=== PATIENT | female | born 1955 | race Caucasian/White ===

== ENCOUNTER 2017-08-19 13:46 | Inpatient (IN) | payer OTHER ==
[~2017-08-19] VITALS: Ht 157.5 cm; Wt 104.4 kg
[~2017-08-19 13:46] MED LIST: ALBU8.5H8 INH; BUPR150T8 PO; CRESTOR5 MG PO; DILT240C2 PO; DILT30TA26 PO; DULO30CA2 PO; FENO145T32 PO; FLUT1DIS IH; LEVO175T5 PO; MELO15TA23 PO; METF10003 PO; METF100P4 MC; OLME20TA17 PO; OMEG1CAP6 PO
[2017-08-19] MEDS ORDERED: IV NORMAL SALINE 1,000ML 1,000 ML IV ONE ×2 (14:15→14:45)
--- NOTE | 2017-08-19 14:28 | EKG ---
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
[2017-08-19 14:43] LABS: BASO % 0 % (0-3); EOS # 0.1 x10^3/uL (0.0-0.7); EOS % 1 % (0-3); HEMATOCRIT 47.2 % (36.0-47.0); LYMPH # 0.5 x10^3/uL (1.0-4.8); LYMPH % 4 % (24-48); MEAN CORPUSCULAR HEMOGLOBIN 31 pg (25-35); MEAN CORPUSCULAR HGB CONC 34 g/dL (31-37); MEAN CORPUSCULAR VOLUME 90 fL (79-100); MONO # 0.5 x10^3/uL (0.0-1.1); MONO % 4 % (0-9); NEUT # 12.6 x10^3uL (1.8-7.7); NEUT % 91 % (31-73); PLATELET COUNT 253 x10^3/uL (140-400); RED BLOOD COUNT 5.24 x10^6/uL (3.50-5.40); RED CELL DISTRIBUTION WIDTH 14.2 % (11.5-14.5); WHITE BLOOD COUNT 13.8 x10^3/uL (4.0-11.0)
[2017-08-19] MEDS ORDERED: METOCLOPRAMIDE HCL 10 MG/2 ML VIAL. IV ONE (14:45)
[2017-08-19 14:57] LABS: CALCIUM 8.9 mg/dL (8.5-10.1); CREATININE 0.7 mg/dL (0.6-1.0); DIRECT BILIRUBIN 0.2 mg/dL (0.0-0.2); GFR 85.1; POTASSIUM 4.7 mmol/L (3.5-5.1); TOTAL BILIRUBIN 0.8 mg/dL (0.2-1.0); TOTAL PROTEIN 7.4 g/dL (6.4-8.2)
[2017-08-19 15:23] LABS: BILIRUBIN,URINE NEG (NEG); CLARITY,URINE CLOUDY; COLOR,URINE YELLOW; GLUCOSE,URINE NEG (NEG); NITRITE,URINE NEG (NEG); UROBILINOGEN,URINE 0.2 mg/dL (0.2 mg/dL)
[2017-08-19 15:24] LABS: BACTERIA,URINE MOD /HPF (0-FEW); SQUAMOUS EPITHELIAL CELL,UR MOD /LPF
[2017-08-19] MEDS ORDERED: CONTRAST GIVEN MC PRN (15:30)
[2017-08-19] MEDS ORDERED: IOHEXOL 300 MG/ML 75 ML VIAL. IV ONE (15:30)
--- NOTE | 2017-08-19 16:04 | RAD ---
CT of the abdomen and pelvis with contrast, 08/19/2017: HISTORY: Nausea and vomiting, previous renal cell cancer Multidetector CT imaging was performed following an IV bolus injection of iodinated contrast material. No oral contrast material was administered for this study. Comparison is made to an exam from 02/12/2016. The liver is enlarged, measuring 22 cm in craniocaudad extent at the level of the right lobe. It is of lower than normal density compatible with fatty change. There is no evidence of a hepatic mass. The gallbladder is surgically absent. No pancreatic abnormality is detected. The spleen is of normal size. There is mild contour irregularity along the lower pole the left kidney which is unchanged and is compatible with scarring. No discrete renal mass is currently seen. The kidneys show no evidence of obstruction. No adrenal abnormality is detected. The abdominal aorta is unremarkable. No abdominal or pelvic adenopathy is seen. The uterus is surgically absent. The colon is unremarkable. There is only borderline distention of several small bowel loops in the left midabdomen. The duodenum is not dilated. There is a moderate amount of fluid in the stomach. No free air or free fluid is evident in the abdomen or pelvis. IMPRESSION: 1. Hepatomegaly with hepatic steatosis. 2. Minimal stable left renal deformity compatible with scarring. 3. No acute abdominal or pelvic abnormality is detected. Electronically signed by: Jeronimo Glez MD (08/19/2017 4:01 PM) [facility]
[2017-08-19] MEDS: IV NORMAL SALINE 1,000ML 1,000 ML IV SCH ×2 (16:16→21:38)
[2017-08-19] MEDS ORDERED: ONDANSETRON PF 4 MG/2 ML VIAL. IV PRN (16:30)
[2017-08-19] MEDS ORDERED: MORPHINE SULFATE 4 MG/ML DISP.SYRIN. IV PRN (16:30)
--- NOTE | 2017-08-19 17:41 | PHYS DOC ---
Past History Past Medical History: Asthma, Cancer, Hypertension, Hypothyroid, Other Past Surgical History: Cholecystectomy, Hysterectomy, Other Alcohol Use: None Drug Use: None Adult General Chief Complaint Chief Complaint: NAUSEA/VOMITING/DIARRHEA HPI HPI 62-year-old female presenting to the emergency department today with nausea and vomiting. She describes her vomitus as dark brown and green. it has been going on for about 8 hours and associated with slight loose stools. She has epigastric abdominal pain that is mild to moderate nonradiating and without alleviating factors. She has a history of cholecystectomy in the past. She has a previous history of renal cell carcinoma which was removed. She has a history of high blood pressure metabolic syndrome asthma and fibromyalgia. She has a history of a hysterectomy. She denies any fevers and chills. Review of systems is negative for chest pain shortness of breath cough headache fevers. All other review of systems is negative unless otherwise noted in history of present illness. ED course: 62-year-old female presenting to the emergency department today with epigastric abdominal pain and nausea and vomiting. On arrival she is afebrile with mild tachycardia. On examination she has soft nondistended abdomen without rebound tenderness or guarding. Negative McBurney's point. Heart and lungs are unremarkable other than mild tachycardia. The remainder the exam is unremarkable. Blood work obtained. IV established. Pain and nausea medications ordered. Labs showed leukocytosis of 13.8 with neutrophilia. Urinalysis not suggestive of infection. Chemistry panel shows hyperglycemia with mildly elevated glucose. ALT and AST are just above the reference range of normal. Lactic acid is mildly elevated. Troponin is negative. CT the abdomen pelvis shows no acute pathology. On reexamination she continues to feel nauseous. We will admit the patient to the hospital for further evaluation monitoring treatment and care. Dr. Newton who accepted the patient for admission. Basic bridge orders placed. I ordered a repeat troponin and lactate for the patient which inpatient team will follow. Review of Systems Review of Systems SEE ABOVE. Current Medications Current Medications Current Medications Medications (Trade) Dose Ordered Sig/Olivia Start Time Stop Time Status Last Admin Dose Admin Fentanyl Citrate (Fentanyl 2ml Vial) 50 mcg PRN Q30MIN PRN 08/19/17 14:45 08/19/17 14:38 50 MCG Iohexol (Omnipaque 300 Mg/ml) 75 ml 1X ONCE 08/19/17 15:30 08/19/17 15:31 DC 08/19/17 15:30 75 ML Metoclopramide HCl (Reglan Vial) 10 mg 1X ONCE 08/19/17 14:45 08/19/17 14:46 DC 08/19/17 14:37 10 MG Morphine Sulfate (Morphine 4mg Syringe) 2 mg PRN Q2HR PRN 08/19/17 16:30 08/20/17 16:29 Ondansetron HCl (Zofran) 4 mg PRN Q4HRS PRN 08/19/17 16:30 08/20/17 16:29 Sodium Chloride 1,000 ml @ 100 mls/hr Q10H 08/19/17 16:16 08/20/17 16:15 Allergies Allergies Allergies Coded Allergies Type Severity Reaction Last Updated Verified Penicillins Allergy Unknown 08/19/17 Yes Physical Exam Physical Exam SEE ABOVE Constitutional: Well developed, well nourished, no acute distress, non-toxic appearance. [] HENT: Normocephalic, atraumatic, bilateral external ears normal, oropharynx moist, no oral exudates, nose normal. [] Eyes: PERRLA, EOMI, conjunctiva normal, no discharge. [] Neck: Normal range of motion, no tenderness, supple, no stridor. [] Cardiovascular:Heart rate regular rhythm, no murmur [] Lungs & Thorax: Bilateral breath sounds clear to auscultation [] Abdomen: Bowel sounds normal, soft, no tenderness, no masses, no pulsatile masses. [] Skin: Warm, dry, no erythema, no rash. [] Back: No tenderness, no CVA tenderness. [] Extremities: No tenderness, no cyanosis, no clubbing, ROM intact, no edema. [] Neurologic: Alert and oriented X 3, normal motor function, normal sensory function, no focal deficits noted. [] Psychologic: Affect normal, judgement normal, mood normal. [] Current Patient Data Vital Signs Vital Signs Date Time Temp Pulse Resp B/P (MAP) Pulse Ox O2 Delivery O2 Flow Rate FiO2 08/19/17 16:42 98 18 121/74 (90) 94 08/19/17 15:08 Room Air 08/19/17 14:02 98.5 Lab Results Laboratory Tests Test 08/19/17 14:26 08/19/17 14:55 White Blood Count 13.8 x10^3/uL (4.0-11.0) H Red Blood Count 5.24 x10^6/uL (3.50-5.40) Hemoglobin 16.0 g/dL (12.0-15.5) H Hematocrit 47.2 % (36.0-47.0) H Mean Corpuscular Volume 90 fL (79-100) Mean Corpuscular Hemoglobin 31 pg (25-35) Mean Corpuscular Hemoglobin Concent 34 g/dL (31-37) Red Cell Distribution Width 14.2 % (11.5-14.5) Platelet Count 253 x10^3/uL (140-400) Neutrophils (%) (Auto) 91 % (31-73) H Lymphocytes (%) (Auto) 4 % (24-48) L Monocytes (%) (Auto) 4 % (0-9) Eosinophils (%) (Auto) 1 % (0-3) Basophils (%) (Auto) 0 % (0-3) Neutrophils # (Auto) 12.6 x10^3uL (1.8-7.7) H Lymphocytes # (Auto) 0.5 x10^3/uL (1.0-4.8) L Monocytes # (Auto) 0.5 x10^3/uL (0.0-1.1) Eosinophils # (Auto) 0.1 x10^3/uL (0.0-0.7) Basophils # (Auto) 0.0 x10^3/uL (0.0-0.2) Sodium Level 142 mmol/L (136-145) Potassium Level 4.7 mmol/L (3.5-5.1) Chloride Level 104 mmol/L (98-107) Carbon Dioxide Level 27 mmol/L (21-32) Anion Gap 11 (6-14) Blood Urea Nitrogen 23 mg/dL (7-20) H Creatinine 0.7 mg/dL (0.6-1.0) Estimated GFR (Cockcroft-Gault) 85.1 Glucose Level 161 mg/dL (70-99) H Lactic Acid Level 2.3 mmol/L (0.4-2.0) H Calcium Level 8.9 mg/dL (8.5-10.1) Total Bilirubin 0.8 mg/dL (0.2-1.0) Direct Bilirubin 0.2 mg/dL (0.0-0.2) Aspartate Amino Transferase (AST) 62 U/L (15-37) H Alanine Aminotransferase (ALT) 91 U/L (14-59) H Alkaline Phosphatase 144 U/L (46-116) H Troponin I Quantitative < 0.017 ng/mL (0-0.055) Total Protein 7.4 g/dL (6.4-8.2) Albumin 4.0 g/dL (3.4-5.0) Lipase 112 U/L (73-393) Urine Collection Type Unknown Urine Color Yellow Urine Clarity Cloudy Urine pH 5.5 Urine Specific [place] 1.025 Urine Protein Trace (NEG-TRACE) Urine Glucose (UA) Neg mg/dL (NEG) Urine Ketones (Stick) 40 mg/dL (NEG) Urine Blood Neg (NEG) Urine Nitrite Neg (NEG) Urine Bilirubin Neg (NEG) Urine Urobilinogen Dipstick 0.2 mg/dL (0.2 mg/dL) Urine Leukocyte Esterase Trace (NEG) Urine RBC 1-2 /HPF (0-2) Urine WBC 5-10 /HPF (0-4) Urine Squamous Epithelial Cells Mod /LPF Urine Bacteria Mod /HPF (0-FEW) Urine Mucus Slight /LPF EKG EKG [] Radiology/Procedures Radiology/Procedures [] Course & Med Decision Making Course & Med Decision Making Pertinent Labs and Imaging studies reviewed. (See chart for details) [] Dragon Disclaimer Dragon Disclaimer This electronic medical record was generated, in whole or in part, using a voice recognition dictation system. Departure Departure: Impression: Primary Impression: Nausea and vomiting Additional Impressions: Feculent vomit on examination Epigastric abdominal pain Disposition: ADMITTED INPATIENT Admitting Physician: Fina Newton Condition: STABLE Referrals: MEGHA COONEY MD (PCP) Problem Qualifiers KAYODE VILLASENOR MD August 19, 2017 17:41
[2017-08-19 18:49] VITALS: BP 119/87
[2017-08-19] MEDS ORDERED: LEVO100T PO (19:24)
[2017-08-19] MEDS ORDERED: ESZO3TAB28 PO (19:24)
[2017-08-19] MEDS ORDERED: LEVO88TA2 PO (19:24)
[2017-08-19 22:46] VITALS: BP 108/73
[2017-08-20] MEDS: IV NORMAL SALINE 1,000ML 1,000 ML IV SCH (05:11)
[2017-08-20 05:25] VITALS: BP 106/66
[2017-08-20 06:38] LABS: BASO % 0 % (0-3); EOS # 0.1 x10^3/uL (0.0-0.7); EOS % 2 % (0-3); HEMATOCRIT 39.8 % (36.0-47.0); HEMOGLOBIN 13.6 g/dL (12.0-15.5); LYMPH # 1.3 x10^3/uL (1.0-4.8); LYMPH % 21 % (24-48); MEAN CORPUSCULAR HEMOGLOBIN 31 pg (25-35); MEAN CORPUSCULAR HGB CONC 34 g/dL (31-37); MEAN CORPUSCULAR VOLUME 90 fL (79-100); MONO # 0.3 x10^3/uL (0.0-1.1); MONO % 6 % (0-9); NEUT # 4.3 x10^3uL (1.8-7.7); NEUT % 71 % (31-73); PLATELET COUNT 195 x10^3/uL (140-400); RED BLOOD COUNT 4.41 x10^6/uL (3.50-5.40); RED CELL DISTRIBUTION WIDTH 13.6 % (11.5-14.5); WHITE BLOOD COUNT 6.1 x10^3/uL (4.0-11.0)
[2017-08-20 07:04] LABS: ALBUMIN 2.9 g/dL (3.4-5.0); ALBUMIN/GLOBULIN RATIO 0.9 (1.0-1.7); CALCIUM 7.7 mg/dL (8.5-10.1); CREATININE 0.6 mg/dL (0.6-1.0); GFR 101.6; POTASSIUM 3.3 mmol/L (3.5-5.1); TOTAL BILIRUBIN 0.7 mg/dL (0.2-1.0); TOTAL PROTEIN 6.1 g/dL (6.4-8.2)
[2017-08-20 10:53] VITALS: BP 120/75
[2017-08-20 14:29] VITALS: BP 114/61
[2017-08-20] MEDS ORDERED: CONTRAST GIVEN MC PRN (16:30)
[2017-08-20] MEDS ORDERED: IOHEXOL 300 MG/ML 75 ML VIAL. IV ONE (16:30)
--- NOTE | 2017-08-20 17:16 | RAD ---
CT Abdomen and Pelvis With Intravenous Contrast: History: Follow-up free fluid. Comparison: CT abdomen pelvis August 19, 2017. Technique: After administration of intravenous contrast, 75 mL Omnipaque-300, CT of the abdomen and pelvis was performed. Exposure: One or more of the following individualized dose reduction techniques were utilized for this examination: 1. Automated exposure control 2. Adjustment of the mA and/or kV according to patient size 3. Use of iterative reconstruction technique Findings: Evaluation of enteric structures may be limited by lack of oral contrast. Fatty, enlarged liver is again seen. Spleen, pancreas, and bilateral adrenal glands unremarkable. Bilateral kidneys enhance symmetrically. Cholecystectomy clips are present. No bowel obstruction or inflammation is identified. Appendix is without evidence of inflammation. No free air free fluid is in the abdomen or pelvis. Urinary bladder is unremarkable. Uterus is absent. Impression: 1. No acute abnormality identified in the abdomen or pelvis. Similar to previous study, no free fluid is seen. 2. Fatty liver disease. Electronically signed by: Tim Hartman MD (08/20/2017 5:13 PM) [place] [id number]
[2017-08-20] MEDS ORDERED: POTASSIUM CHLORIDE 20 MEQ TABLET.ER. PO ONE (18:15)
[2017-08-20] MEDS ORDERED: ZOLPIDEM 5 MG TABLET. PO PRN (18:15)
--- NOTE | 2017-08-20 18:59 | SSS ---
ADMIT DATE: 08/20/2017 HISTORY OF PRESENT ILLNESS: The patient is a 62-year-old female patient who basically came to the Emergency Room with a complaint of recurrent bouts of nausea, vomiting. She describes the vomitus as dark brown-green, this has been going on for almost about 8 hours associated with slight loose stool. She has epigastric abdominal pain which is [id number], nonradiating without alleviating factors. She has a history of cholecystectomy in the past. She has a previous history of renal cell carcinoma that was removed. She was evaluated in the Emergency Room and her lab work showed that she has leukocytosis and clearly hemoconcentration as her hemoglobin was 16, hematocrit 47, and her initial lab work showed that her liver enzymes are slightly elevated. She was started on IV fluid, kept n.p.o. and her repeated lab work showed that her hemoglobin was down to 13.6, hematocrit 39.8 with normal white cell count and platelets. Her chemistry showed that her liver enzymes, even her AST and ALT are still slightly elevated but trending down. The patient has had no further episodes of nausea, vomiting. We will repeat her CT scan of the abdomen as yesterday she has markedly distended stomach, small bowel; however, the repeat CT scan did show that there is no acute abnormality identified in the abdomen and pelvis, similar to previous study. No free fluid is seen. Fatty liver disease. PAST MEDICAL HISTORY: Significant for hypertension, hypothyroidism, metabolic syndrome, hypertriglyceridemia, fibromyalgia, morbid obesity, obstructive sleep apnea, and osteoarthritis. PAST SURGICAL HISTORY: Significant for tonsillectomy, cholecystectomy, total abdominal hysterectomy, bilateral salpingo-oophorectomy, repair of a bone cyst in her heel. She also underwent a cryo treatment for left renal cell carcinoma. ALLERGIES: SHE IS ALLERGIC TO PENICILLIN. MEDICATIONS: She is currently on following medications. She is on omega 3 fatty acid fish oil for hypertriglyceridemia, diltiazem 240 mg, olmesartan medoxomil for Benicar 20 mg once a day, meloxicam 15 mg daily, Wellbutrin-SR 150 mg daily, Cymbalta 60 mg daily, Lunesta 30 mg at bedtime, metformin 1500 mg daily with breakfast, ____ levothyroxine 100 mcg daily. FAMILY HISTORY: She has one sister, older, has diabetes. Mother in her 80s due to CVA. Father in his 80s because of coronary artery disease and diabetes complication. SOCIAL HISTORY: She is , has a daughter and a son. She never smoked, does not drink alcohol and does not use any drugs. 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 REVIEW OF SYSTEMS: As per history of present illness. PHYSICAL EXAMINATION GENERAL: When I examined her today, she looked well and was clearly in no apparent respiratory distress. No pallor, jaundice, cyanosis, or thyromegaly. No jugular venous distension. No limb edema. VITAL SIGNS: Her heart rate was 84, blood pressure 114/61, temperature was 98.3, respiratory rate was 18 and oxygen saturation was 95%. HEENT: Showed normocephalic, atraumatic. NECK: Supple. HEART: Showed normal first and second heart sounds with no gallop, rub or murmur. CHEST: Clear to auscultation. No crepitation or rhonchi. ABDOMEN: Distended, soft, tender. No guarding or rigidity. No organomegaly. All hernial orifices intact. Bowel sounds normal. NEUROLOGIC: She was awake, alert, responding appropriately. Cranial nerves intact. She moves extremities without difficulty. She ambulates without assistance or assistive device. LABORATORY DATA: Her lab work prior to discharge showed a serum sodium 141, potassium 3.3, chloride 106, bicarbonate 26, anion gap of 9, BUN 11, creatinine 0.6, estimated GFR was 101 mL per minute. Her glucose 110, calcium was 7.7. Her lactic acid was only 1. Total bilirubin and alkaline phosphatase normal. AST, ALT slightly elevated, although trending down. Her lactate dehydrogenase was normal at 159. Total protein was 6.1, albumin 2.9. Her white cell count this morning was 6.1, hemoglobin 13.6, hematocrit 39.8, MCV 90 and platelet count of 195,000. Urinalysis was unremarkable. She will be discharged to continue on all her current medication. FINAL DISCHARGE DIAGNOSES: Probably acute gastroenteritis, hypertension, hypothyroidism, hypertriglyceridemia, fibromyalgia, obstructive sleep apnea. CALE YAO MD DR: GLORIA/judie JOB#: [id number] / [id number]
[2017-08-20] MEDS ORDERED: LOSARTAN 50 MG TABLET. PO SCH (21:00)
[2017-08-21] MEDS ORDERED: LEVOTHYROXINE 100 MCG TABLET PO SCH (07:30)
[2017-08-21] MEDS ORDERED: LEVOTHYROXINE 88 MCG TABLET PO SCH (07:30)
[2017-08-21] MEDS ORDERED: MELOXICAM 15 MG TABLET. PO SCH (08:00)
[2017-08-21] MEDS ORDERED: DULoxetine HCL 60 MG CAPSULE.DR PO SCH (09:00)
[2017-08-21] MEDS ORDERED: buPROPion SR 150 MG TABLET.SA PO SCH (09:00)
[2017-08-21] MEDS ORDERED: OMEGA-3 FATTY ACIDS/FISH OIL 1,000 MG CAPSULE. PO SCH (09:00)
[2017-08-23] MEDS ORDERED: metFORMIN 500 MG TABLET PO SCH (08:00)
== END 2017-08-20 18:52 | disposition home or self-care (01) | DRG 392 ==
LOC: ER 13:46 → 1 SOUTH 16:19
PROVIDERS: ADMIT Internal Medicine; ATTEND Internal Medicine
PROC: 5A09357 Assistance with Respiratory Ventilation, Less than 24 Consecutive Hours, Continuous Positive Airway Pressure (ICD-10-PCS; principal; 2017-08-19)
DX: K52.9 Noninfective gastroenteritis and colitis, unspecified (principal); E88.81 Metabolic syndrome and other insulin resistance; K76.0 Fatty (change of) liver, not elsewhere classified; E66.01 Morbid (severe) obesity due to excess calories; Z68.41 Body mass index [BMI] 40.0-44.9, adult; E03.9 Hypothyroidism, unspecified; I10 Essential (primary) hypertension; J45.909 Unspecified asthma, uncomplicated; M79.7 Fibromyalgia; E78.1 Pure hyperglyceridemia; G47.33 Obstructive sleep apnea (adult) (pediatric); M19.90 Unspecified osteoarthritis, unspecified site; Z88.0 Allergy status to penicillin; Z79.899 Other long term (current) drug therapy; Z90.89 Acquired absence of other organs; Z90.722 Acquired absence of ovaries, bilateral; Z90.79 Acquired absence of other genital organ(s); Z90.49 Acquired absence of other specified parts of digestive tract; Z90.710 Acquired absence of both cervix and uterus; Z85.528 Personal history of other malignant neoplasm of kidney; Z82.3 Family history of stroke; Z82.49 Family history of ischemic heart disease and other diseases of the circulatory system; Z83.3 Family history of diabetes mellitus
CPT/HCPCS: 36415; 74177; 80048; 80053; 80076; 81001; 83605; 83615; 83690; 84484; 85025; 87086; 87324; 93005; 96374; 96375; J2765; J3010; Q9967; 99285-25; J7030

== ENCOUNTER 2018-09-28 02:46 | Emergency (ER) | payer OTHER ==
[~2018-09-28] VITALS: Ht 157.5 cm; Wt 104.3 kg
[~2018-09-28 02:46] MED LIST changes: +ALBU2.5V8 INH; -ALBU8.5H8 INH; +ESZO3TAB28 PO; +LEVO100T PO; +LEVO88TA2 PO; -METF10003 PO; +METF10007 PO
--- NOTE | 2018-09-28 03:18 | ED.ADGEN ---
Past History Past Medical History: Asthma, Cancer, Hypertension, Hypothyroid, Other Past Surgical History: Cholecystectomy, Hysterectomy, Other Alcohol Use: None Drug Use: None Adult General Chief Complaint Chief Complaint Dizziness, nausea HPI HPI Patient is a 63-year-old female with history of fibromyalgia, hypertension and hypothyroidism who presents with dizziness and nausea. Patient states she woke up feeling dizzy and nauseated and drenched in sweat. States dizziness is worse with position change and standing. Denies fever, chills. Denies headache, neck pain, blurred vision of hearing. No extremity weakness or loss of sensation. Denies chest pain, palpitations and shortness of breath. Denies abdominal pain. No urinary frequency urgency or dysuria. Patient is not diabetic. States she ate prior to ED arrival to see if and her symptoms did not improve. Patient reports did fall earlier today as she tripped on a curb and landed on her left side. Does report left flank/chest wall pain which she has been treating with ice. [] Review of Systems Review of Systems Review symptoms as per history of present illness. All other review symptoms are negative. All other systems were reviewed and found to be within normal limits, except as documented in this note. Current Medications Current Medications Current Medications Medications (Trade) Dose Ordered Sig/Olivia Start Time Stop Time Status Last Admin Dose Admin Ceftriaxone Sodium 1 gm/ Sodium Chloride 50 ml @ 100 mls/hr 1X ONCE 09/28/18 05:30 09/28/18 05:59 09/28/18 05:31 100 MLS/HR Ceftriaxone Sodium (Rocephin) 1 gm STK-MED ONCE 09/28/18 05:27 09/28/18 05:28 DC Info (Do NOT chart on this entry -- for MONITORING) 1 each PRN DAILY PRN 09/28/18 04:00 09/30/18 03:59 Iohexol (Omnipaque 300 Mg/ml) 75 ml 1X ONCE 09/28/18 04:00 09/28/18 04:01 DC 09/28/18 04:09 75 ML Sodium Chloride 50 ml @ As Directed STK-MED ONCE 09/28/18 05:27 09/28/18 05:28 DC Allergies Allergies Allergies Coded Allergies Type Severity Reaction Last Updated Verified Penicillins Allergy Unknown 08/19/17 Yes Physical Exam Physical Exam Constitutional: Well developed, well nourished, no acute distress, non-toxic appearance. [] HENT: Normocephalic, atraumatic, bilateral external ears normal, oropharynx moist, no oral exudates, nose normal. [] Eyes: PERRLA, EOMI, conjunctiva normal, no discharge. No nystagmus.[] Neck: Normal range of motion, no tenderness, supple, no stridor. [] Cardiovascular:Heart rate regular rhythm, no murmur [] Lungs & Thorax: Bilateral breath sounds clear to auscultation [] Abdomen: Bowel sounds normal, soft, no tenderness. [] Skin: Warm, dry, no erythema, no rash. [] Back: No tenderness, no CVA tenderness. [] Extremities: No tenderness, no cyanosis, no clubbing, ROM intact, no edema. [] Neurologic: Alert and oriented X 3, cranial nerves II through XII grossly intact, normal motor function, normal sensory function, no focal deficits noted. [] Psychologic: Affect normal, judgement normal, mood normal. [] Current Patient Data Vital Signs Vital Signs Date Time Temp Pulse Resp B/P (MAP) Pulse Ox O2 Delivery O2 Flow Rate FiO2 09/28/18 02:46 97.7 70 18 98 Room Air Lab Results Laboratory Tests Test 09/28/18 03:15 09/28/18 03:25 09/28/18 03:50 Glucose (Fingerstick) 103 mg/dL (70-99) H White Blood Count 6.8 x10^3/uL (4.0-11.0) Red Blood Count 4.88 x10^6/uL (3.50-5.40) Hemoglobin 14.8 g/dL (12.0-15.5) Hematocrit 44.2 % (36.0-47.0) Mean Corpuscular Volume 91 fL (79-100) Mean Corpuscular Hemoglobin 30 pg (25-35) Mean Corpuscular Hemoglobin Concent 33 g/dL (31-37) Red Cell Distribution Width 13.3 % (11.5-14.5) Platelet Count 198 x10^3/uL (140-400) Neutrophils (%) (Auto) 52 % (31-73) Lymphocytes (%) (Auto) 39 % (24-48) Monocytes (%) (Auto) 6 % (0-9) Eosinophils (%) (Auto) 3 % (0-3) Basophils (%) (Auto) 1 % (0-3) Neutrophils # (Auto) 3.5 x10^3uL (1.8-7.7) Lymphocytes # (Auto) 2.6 x10^3/uL (1.0-4.8) Monocytes # (Auto) 0.4 x10^3/uL (0.0-1.1) Eosinophils # (Auto) 0.2 x10^3/uL (0.0-0.7) Basophils # (Auto) 0.0 x10^3/uL (0.0-0.2) Sodium Level 144 mmol/L (136-145) Potassium Level 3.9 mmol/L (3.5-5.1) Chloride Level 105 mmol/L (98-107) Carbon Dioxide Level 29 mmol/L (21-32) Anion Gap 10 (6-14) Blood Urea Nitrogen 17 mg/dL (7-20) Creatinine 0.7 mg/dL (0.6-1.0) Estimated GFR (Cockcroft-Gault) 84.8 BUN/Creatinine Ratio 24 (6-20) H Glucose Level 111 mg/dL (70-99) H Lactic Acid Level 1.7 mmol/L (0.4-2.0) Calcium Level 9.0 mg/dL (8.5-10.1) Total Bilirubin 0.4 mg/dL (0.2-1.0) Aspartate Amino Transferase (AST) 18 U/L (15-37) Alanine Aminotransferase (ALT) 37 U/L (14-59) Alkaline Phosphatase 124 U/L (46-116) H Troponin I Quantitative < 0.017 ng/mL (0-0.055) Total Protein 6.4 g/dL (6.4-8.2) Albumin 3.6 g/dL (3.4-5.0) Albumin/Globulin Ratio 1.3 (1.0-1.7) Urine Collection Type Unknown Urine Color Yellow Urine Clarity Clear Urine pH 5.5 Urine Specific [place] >=1.030 Urine Protein Neg (NEG-TRACE) Urine Glucose (UA) Neg mg/dL (NEG) Urine Ketones (Stick) Neg mg/dL (NEG) Urine Blood Trace (NEG) Urine Nitrite Neg (NEG) Urine Bilirubin Neg (NEG) Urine Urobilinogen Dipstick 0.2 mg/dL (0.2 mg/dL) Urine Leukocyte Esterase Trace (NEG) Urine RBC Occ /HPF (0-2) Urine WBC 5-10 /HPF (0-4) Urine Squamous Epithelial Cells Mod /LPF Urine Bacteria 0 /HPF (0-FEW) EKG EKG [EKG: Normal sinus rhythm, subtle ST elevation in inferior leads with T-wave inversion in V2 and flattening in V3.] Radiology/Procedures Radiology/Procedures [Chest x-ray: no obvious acute pulmonary disease on preliminary ED review CT abdomen pelvis: No acute findings per radiology report] Course & Med Decision Making Course & Med Decision Making Pertinent Labs and Imaging studies reviewed. (See chart for details) [Patient with fatigue, sweats and generalized weakness without obvious etiology. Patient area without dysuria frequency or burning. White blood cell count count is normal. Lactic acid is negative.. IV fluids and antibiotics given. Subtle inferior ST changes present on EKG with T-wave inversion in [place] leads. Concern for atypical coronary syndrome aspirin given. Aspirin given.Case reviewe d with Dr. Scherer on-call for cardiology. Will transfer to [facility]. Dr. Cantor accepts ] Final Impression Final Impression []1. generalized weakness 2. Abnl EKG 3. Pyuria Dragon Disclaimer Dragon Disclaimer This electronic medical record was generated, in whole or in part, using a voice recognition dictation system. DONALDO MONROY DO Sep 28, 2018 03:18
--- NOTE | 2018-09-28 03:39 | EKG ---
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
[2018-09-28] MEDS ORDERED: IOHEXOL 300 MG/ML 75 ML VIAL. IV ONE (04:00)
[2018-09-28] MEDS ORDERED: CONTRAST GIVEN MC PRN (04:00)
[2018-09-28 04:04] LABS: BASO % 1 % (0-3); EOS # 0.2 x10^3/uL (0.0-0.7); EOS % 3 % (0-3); HEMATOCRIT 44.2 % (36.0-47.0); HEMOGLOBIN 14.8 g/dL (12.0-15.5); LYMPH # 2.6 x10^3/uL (1.0-4.8); LYMPH % 39 % (24-48); MEAN CORPUSCULAR HEMOGLOBIN 30 pg (25-35); MEAN CORPUSCULAR HGB CONC 33 g/dL (31-37); MEAN CORPUSCULAR VOLUME 91 fL (79-100); MONO # 0.4 x10^3/uL (0.0-1.1); MONO % 6 % (0-9); NEUT # 3.5 x10^3uL (1.8-7.7); NEUT % 52 % (31-73); PLATELET COUNT 198 x10^3/uL (140-400); RED BLOOD COUNT 4.88 x10^6/uL (3.50-5.40); RED CELL DISTRIBUTION WIDTH 13.3 % (11.5-14.5); WHITE BLOOD COUNT 6.8 x10^3/uL (4.0-11.0)
[2018-09-28 04:23] LABS: BACTERIA,URINE 0 /HPF (0-FEW); BILIRUBIN,URINE NEG (NEG); CLARITY,URINE CLEAR; COLOR,URINE YELLOW; GLUCOSE,URINE NEG (NEG); NITRITE,URINE NEG (NEG); RBC,URINE OCC /HPF (0-2); SQUAMOUS EPITHELIAL CELL,UR MOD /LPF; UROBILINOGEN,URINE 0.2 mg/dL (0.2 mg/dL)
[2018-09-28 04:40] LABS: ALBUMIN 3.6 g/dL (3.4-5.0); ALBUMIN/GLOBULIN RATIO 1.3 (1.0-1.7); CREATININE 0.7 mg/dL (0.6-1.0); GFR 84.8; POTASSIUM 3.9 mmol/L (3.5-5.1); TOTAL BILIRUBIN 0.4 mg/dL (0.2-1.0); TOTAL PROTEIN 6.4 g/dL (6.4-8.2)
--- NOTE | 2018-09-28 05:22 | RAD ---
PQRS Compliance Statement: One or more of the following individualized dose reduction techniques were utilized for this examination: 1. Automated exposure control 2. Adjustment of the mA and/or kV according to patient size 3. Use of iterative reconstruction technique CT abdomen/pelvis with contrast 09/28/2018 3:24 AM INDICATION: Trauma with left upper quadrant abdominal pain and injury COMPARISON: CT abdomen/pelvis August 19, 2017 TECHNIQUE: Multiple axial CT images of the abdomen and pelvis were obtained after the intravenous administration of nonionic contrast. Coronal and sagittal reformats are provided. FINDINGS: Lung bases are clear. Heart size is borderline enlarged. Hypoattenuation of the hepatic parenchyma suggestive of hepatic steatosis. Spleen is intact. Adrenal glands, pancreas and kidneys are normal in appearance. Lobular contour of the interpolar left kidney appears stable. No hydronephrosis. Abdominal aorta is normal in course and caliber. No pathologically enlarged lymph nodes in abdomen and pelvis. There is no free fluid or free intraperitoneal air. Mild colonic diverticulosis. Appendix is not definitively visualized. No pericecal inflammatory changes are identified. No evidence for bowel obstruction or inflammation. Uterus is surgically absent. Urinary bladder is within normal limits given degree of distention. No suspicious osseous abnormality is identified. IMPRESSION: No acute abnormalities identified in the abdomen and pelvis. Specifically, no traumatic injury is identified in the left upper quadrant abdomen. Electronically signed by: Rozina Rosales MD (09/28/2018 5:19 AM) [id number]
[2018-09-28] MEDS ORDERED: IV NORMAL SALINE 50ML 50 ML ONE (05:27)
[2018-09-28] MEDS ORDERED: cefTRIAXone SODIUM 1 GM VIAL ONE (05:27)
[2018-09-28] MEDS ORDERED: IV NORMAL SALINE 1,000ML 1,000 ML IV ONE ×2 (05:30)
[2018-09-28] MEDS ORDERED: ASPIRIN 81 MG TAB.CHEW PO ONE (06:00)
[2018-09-28 06:55] VITALS: BP 105/48
--- NOTE | 2018-09-28 07:41 | RAD ---
EXAM: AP View of the chest DATE: 09/28/2018 3:11 AM INDICATION: dizziness, nausea COMPARISON: No Prior FINDINGS: Of note evaluation is limited given prominent overlying soft tissues and suboptimal radiographic penetration. Mild cardiomegaly. Mediastinal and hilar contours are grossly unremarkable. No lobar consolidation. No pleural effusion or pneumothorax. Electronically signed by: Pancho Gómez MD (09/28/2018 7:38 AM) [facility]
== END 2018-09-28 07:00 | disposition short-term general hospital (02) ==
LOC: ER 02:46
DX: N39.0 Urinary tract infection, site not specified (principal); R53.1 Weakness; R94.31 Abnormal electrocardiogram [ECG] [EKG]; J45.909 Unspecified asthma, uncomplicated; I10 Essential (primary) hypertension; E03.9 Hypothyroidism, unspecified; Z88.0 Allergy status to penicillin
CPT/HCPCS: 36415; 71045; 74177; 80053; 81001; 82947; 83605; 84443; 84484; 85025; 87040; 87086; 93005; 96365; 99285; J0696; Q9967; J7030